=== PATIENT | male | born 1950 | race African-American/Black ===

== ENCOUNTER 2025-08-13 12:55 | Inpatient (IN) | payer MEDICARE, OTHER ==
[~2025-08-13] VITALS: Ht 172.7 cm; Wt 68.9 kg
[2025-08-13 13:16] LABS: PLATELET COUNT (AUTO) 205 K/uL (152-348); RED BLOOD CELL COUNT(AUTO) 4.29 MIL/uL (4.06-5.63); RED CELL DISTRIBUTION WIDTH 13.1 % (12.1-16.2); WHITE BLOOD COUNT (AUTO) 5.5 K/uL (3.6-10.2)
[2025-08-13] MEDS ORDERED: ACET325C7 PO (13:16)
[2025-08-13] MEDS ORDERED: SERT50TA14 (13:16)
[2025-08-13 13:27] LABS: CREATININE 0.9 mg/dL (0.6-1.3); SODIUM SERUM 145 mmol/L (136-145); UREA NITROGEN, BLOOD 20 mg/dL (7-18)
[2025-08-13 13:32] LABS: ASPARTATE AMINOTRANSFERASE 25 U/L (15-37); TOTAL PROTEIN, SERUM 6.8 g/dL (6.4-8.2)
[2025-08-13 13:43] LABS: ETHANOL < 3 MG/DL (0-10)
[2025-08-13 13:49] LABS: *BILIRUBIN,URIN NEGATIVE (NEGATIVE); *BLOOD, URINE NEGATIVE (NEGATIVE); *CLARITY,URINE TURBID (CLEAR); *KETONES,URINE NEGATIVE (NEGATIVE); *PROTEIN,URINE 1+ (NEGATIVE); *UROBILINOGEN,URINE 1.0 E.U./dl (NORMAL); LEUKOCYTE ESTERASE ,URINE NEGATIVE (NEGATIVE); NITRITE, URINE NEGATIVE (NEGATIVE); UGLUCOSE NEGATIVE (NEGATIVE)
[2025-08-13 14:00] VITALS: BP 140/82
[2025-08-13 14:01] LABS: *AMPHETAMINE, URINE NEGATIVE (NEGATIVE); *BARBITURATE, URINE NEGATIVE (NEGATIVE); *BENZODIAZEPINE, URINE NEGATIVE (NEGATIVE); *CANNABINOID, URINE NEGATIVE (NEGATIVE); *COCCAINE, URINE NEGATIVE (NEGATIVE); *OPIATE, URINE NEGATIVE (NEGATIVE); *PHENCYCLIDINE SCREEN,URINE NEGATIVE (NEGATIVE); FENTANYL, URINE NEGATIVE (NEGATIVE)
[2025-08-13 14:06] LABS: URINE AMORPHOUS PHOSPHATES MANY /HPF
[2025-08-13] MEDS ORDERED: SERT25TA PO (14:41)
[2025-08-13 16:40] VITALS: BP 154/84; TEMP 98.1; O2SAT 98
[2025-08-13] MEDS ORDERED: MAG HYDROX/AL HYDROX/SIMETH 30 ML LIQUID UDC PO PRN (16:45)
[2025-08-13] MEDS ORDERED: TEMAZEPAM 7.5 MG CAPSULE PO PRN ×2 (16:45→19:45)
[2025-08-13] MEDS ORDERED: MAGNESIUM HYDROXIDE 30 ML LIQUID UDC PO PRN (16:45)
[2025-08-13] MEDS: BLOOD SUGAR DIAGNOSTIC 1 EACH STRIP VI ONE (17:21)
[2025-08-13] MEDS ORDERED: LORAZEPAM 0.5 MG TABLET PO PRN (19:45)
[2025-08-13 20:00] VITALS: BP 127/79; TEMP 98.2; O2SAT 95
[2025-08-14 08:18] LABS: CREATININE 0.9 mg/dL (0.6-1.3); SODIUM SERUM 145 mmol/L (136-145); UREA NITROGEN, BLOOD 12 mg/dL (7-18)
[2025-08-14 08:47] VITALS: BP 161/94; TEMP 97.4; O2SAT 99
[2025-08-14 16:55] VITALS: BP 156/83; TEMP 97.7; O2SAT 97
[2025-08-14] MEDS: DIVALPROEX 125 MG TABLET.DR PO SCH (17:20)
[2025-08-14 19:55] VITALS: BP 152/85; TEMP 97.5; O2SAT 99
[2025-08-14] MEDS: LORAZEPAM 0.5 MG TABLET PO PRN (20:42)
[2025-08-15 08:23] VITALS: BP 143/83; TEMP 98; O2SAT 99
[2025-08-15] MEDS: AMLODIPINE 5 MG TABLET PO SCH (09:06)
[2025-08-15 15:15] VITALS: BP 119/79; TEMP 98; O2SAT 96
[2025-08-15 20:00] VITALS: BP 148/87; TEMP 97.8; O2SAT 100
[2025-08-16 09:23] VITALS: BP 148/83; TEMP 98; O2SAT 98
[2025-08-16] MEDS: DIVALPROEX 125 MG TABLET.DR PO SCH (13:30)
[2025-08-16 15:21] VITALS: BP 115/71; TEMP 98; O2SAT 99
[2025-08-16 20:26] VITALS: BP 124/83; TEMP 98; O2SAT 98
[2025-08-17 08:24] VITALS: BP 153/78; TEMP 98; O2SAT 99
[2025-08-17 15:48] VITALS: BP 135/73; TEMP 98; O2SAT 99
[2025-08-18 08:29] VITALS: BP 136/72; TEMP 98; O2SAT 99
[2025-08-18 16:44] VITALS: BP 144/59; TEMP 98; O2SAT 99
[2025-08-18 20:26] VITALS: BP 157/80; TEMP 97.3; O2SAT 98
[2025-08-19 08:51] VITALS: BP 147/79; TEMP 98; O2SAT 99
[2025-08-19 16:54] VITALS: BP 140/85; TEMP 98; O2SAT 99
[2025-08-19 20:09] VITALS: BP 125/77; TEMP 98.3; O2SAT 100
[2025-08-20 08:54] VITALS: BP 123/68; TEMP 98; O2SAT 99
[2025-08-20] MEDS ORDERED: AMLODIPINE 5 MG TABLET PO SCH (09:00)
[2025-08-20 09:35] VITALS: BP 123/68
[2025-08-20] MEDS: AMLODIPINE 10 MG TABLET PO SCH (09:35)
[2025-08-20] MEDS: DIVALPROEX 500 MG TABLET.DR PO SCH (09:39)
[2025-08-20] MEDS: ACETAMINOPHEN 325 MG TABLET PO PRN (11:18)
== END 2025-08-20 14:45 | DRG 885 ==
LOC: ER 12:55 → GPS 14:37
PROVIDERS: ADMIT Psychiatry & Neurology Psychosomatic Medicine; ATTEND Student in an Organized Health Care Education/Training Program
DX: F29 Unspecified psychosis not due to a substance or known physiological condition (principal); E86.0 Dehydration; F32.A Depression, unspecified; I11.9 Hypertensive heart disease without heart failure; F41.9 Anxiety disorder, unspecified; M15.9 Polyosteoarthritis, unspecified; R41.9 Unspecified symptoms and signs involving cognitive functions and awareness; Z79.899 Other long term (current) drug therapy
CPT/HCPCS: 36415; 70450; 71045; 84443; 85025; 93005; A4606; A4663; G0480